=== PATIENT | male | born 2000 | race Caucasian/White ===

== ENCOUNTER 2022-03-31 11:59 | Outpatient (CLI) | payer BC, SELFPAY ==
--- OUTSIDE RECORDS SUMMARY | 2022-03-31 12:01 | XMS_ITS | Clinical Summary ---
:2000 Author Organization [facility] [employer] [facility] [place] [address] Care Team Providers Name Role Phone Damion Hernández MD Primary Care Provider Allergies No known active allergies Medications Medication Sig Dispensed Refills Start Date End Date Status methylphenidate Take 1 tablet by 0 04/01/2016 Active (CONCERTA) 54 mg ER mouth once daily tabletIndications: Earliest Fill Attention deficit Date: 04/01/16 hyperactivity disorder (ADHD), unspecified ADHD type escitalopram oxalate Take 1 tablet by 0 09/21/2016 Active (LEXAPRO) 10 mg tablet mouth once daily. Active Problems Problem Noted Date Unspecified adjustment reaction 06/02/2010 Psoriasis Encounters Date Type Specialty Care Team Description 03/22/2022 Telephone Jaspal Guerra, DANDY Jacey ointment Request (Left foot pain) 03/21/2022 Orders Only Scanner <No scans attac hed> from Last 3 Months Immunizations Name Administration Dates Next Due AMB Influenza, (Flumist) Live 02/09/2015 Intranasal,LAIV4 (Flu Clinic Only) AMB Influenza, IIV3 (Age >=3 03/15/2011, 04/20/2010, 008 years)(Flu Clinic Only) DTaP 12/28/2004, 09/18/2000, 01/28/2000, 1999, 1999 HIB-HepB (Comvax) 06/15/2000, 1999, 1999 Inactivated Polio Vaccine 12/28/2004, 01/28/2000, 1999 , 1999 Influenza, IIV3 (Age >=3 years) 04/06/2007 MMR 12/28/2004, 06/15/2000 Pneumococcal conj 7-Valent (Prevnar 01/28/2000 7) Tdap 08/03/2011 Varicella Vaccine 08/03/2011, 06/15/2000 Family History Medical History Relation Name Comments Good Health Father Diabetes Maternal Grandfather Good Health Mother Relation Name Status Comments Father Maternal Grandfather Mother Social History Tobacco Use Types Packs/Day Years Used Date Never Smoker Smokeless Tobacco: Never Used Tobacco Cessation: Counseling Given: Yes Alcohol Use Standard Drinks/Week Comments No 0 (1 standard drink = 0.6 oz pure alcoho l) Sex Assigned at Date Recorded Not on file Obstetrics History Last Filed Vital Signs Vital Sign Reading Time Taken Comments Blood Pressure 133/79 03/29/2018 8:04 AM [employer] Pulse 60 03/29/2018 8:04 AM [employer] Temperature 36.4 ??C (97.6 ??F) 03/29/2018 8:04 AM [employer] Respiratory Rate - - Oxygen Saturation 97% 03/29/2018 8:04 AM [employer] Inhaled Oxygen Concentration - - Weight 98.3 kg (216 lb 12.8 oz) 03/29/2018 8:04 AM [employer] Height 179 cm (5' 10.47) 03/29/2018 8:04 AM [employer] Body Mass Index 30.69 03/29/2018 8:04 AM [employer] Plan of Treatment Health Maintenance Due Date Last Done Comments COVID-19 vaccine series (#1) 1999 HPV series for age 9-26 (1 - Male 2010 2-dose series) HIV for age 15-65 2014 Hepatitis C screening for age 0206/14/2017 18-79 Depression screening for age 12+ 09/21/2017 09/21/2016, 06/2015 BMI (ht and wt on same day) for 03/29/2019 03/29/2018 age 18+ Tetanus booster 08/02/2021 08/03/2011 Influenza for age 9-49 12/30/2021 02/09/2015, 03/15/2011, 04/20/2010, Additional history exists Tdap Completed 08/03/2011 Procedures Procedure Name Priority Date/Time Associated Diagnosis Comme nts SCAN-RADIOLOGY 03/21/2022 12:00 AM Result s for this REPORT [employer] procedure are i n the results section. from Last 3 Months Results SCAN-RADIOLOGY REPORT (03/21/2022 12:00 AM [employer]) Narrative This result has an attachment that is no t available. Scanner OTHER from Last 3 Months Insurance Payer Benefit Plan / Subscriber ID Effective Dates Phone Addre ss Type Group [employer] [place] [employer] [id number] 2020-Present [address] [address] [place] [id number] (Home) [employer] [id number] Att[address] Relationship Specialty Start Date End Date Damion Hernández MD PCP - General Family Practice 04/18/16 [address] [place], [place] [id number]
[2022-03-31 22:20] LABS: Chloride* 102 mmol/L (96-114); Sodium* 140 mmol/L (135-149)
[2022-03-31 22:21] LABS: Potassium* 4.9 mmol/L (3.6-5.1)
[2022-03-31 22:23] LABS: Alkaline Phosphatase* 95 U/L (40-150); Aspartate Amino Transferase* 38 U/L (12-35); Bilirubin Total* 0.5 mg/dL (0.1-1.5); Blood Urea Nitrogen* 18 mg/dL (5-24); Carbon Dioxide* 29 mmol/L (20-32); Cholesterol* 193 mg/dL (90-199); Glucose* 83 mg/dL (60-115); Total Protein* 8.1 g/dL (6.0-8.3); Triglycerides* 113 mg/dL (40-149)
[2022-03-31 22:24] LABS: Alanine Aminotransferase* 47 U/L (4-50); Calcium* 10.2 mg/dL (8.4-10.6); HDL Cholesterol* 45 mg/dL (>=40); LDL Cholesterol Calculated 125 mg/dL (<100)
[2022-03-31 23:56] LABS: Creatinine* 0.8 mg/dL (0.5-1.5); Estimated Glomerular Filt Rate 128 ml/min
== END 2022-03-31 12:00 | disposition home or self-care (01) ==
PROVIDERS: PCP Pediatrics; Visit Provider Dermatology
DX: L40.9 Psoriasis, unspecified (principal)
CPT/HCPCS: 80053; 80061; 86480

== ENCOUNTER 2024-07-01 16:15 | Outpatient (CLI) | payer BC, SELFPAY | END 2024-07-01 16:16 | disposition home or self-care (01) | LOC: NFLDREF 07-05 03:04 | PROVIDERS: PCP Internal Medicine; Referring Provider Internal Medicine; Visit Provider Internal Medicine | DX: Z11.1 Encounter for screening for respiratory tuberculosis (principal) | CPT/HCPCS: 86480 ==